=== PATIENT | female | born 1935 | race Caucasian/White ===

== ENCOUNTER → 2016-12-02 | Outpatient (CLI) | payer MEDICARE, OTHER ==
[~2016-12-02] MED LIST: ASPIRIN EC81 MG PO; BENADRYL25 MG PO; CALCIUM-MAGNES1 EAC1 PO; COLACE100 MG PO; COREG6.25 MG PO; DIOVAN HCT 1601 EACH; DIOVAN160 MG PO; ESSENTIAL DAIL1 EACH PO; FISH OIL 1,2001 EACH PO; FORTAMET1000 MG PO; K-TAB 10MEQ10 MEQ PO; MIRALAX17 GM PO; NITROSTAT0.4 MG SL; NORCO 5-325 MG1 TAB PO; PRILOSEC20 MG PO; PROAIR HFA8.5 GM INH; SINGULAIR10 MG PO; SYMBICORT 16010.2 GM INH; TYLENOL EXTRA500 MG PO; TYLENOL325 MG PO; VICTOZA 2-0.6 MG/0.1; VICTOZA 2-0.6 MG/0.1 SUB-Q; VITAMIN B-1250 MCG PO; XARELTO10 MG PO; ZOCOR40 MG PO; [UNRECOGNIZED DRUG - OTHER] PO
== END | disposition disaster alternative care site (69) ==
LOC: GBCOE 09:28
DX: Z12.31 Encounter for screening mammogram for malignant neoplasm of breast (principal)
CPT/HCPCS: G0202